=== PATIENT | male | born 1955 | race Caucasian/White ===

== ENCOUNTER 2020-09-27 08:07 | Outpatient (REF) | payer OTHER, SELFPAY ==
[2020-09-27 10:06] LABS: MANUAL DIFF FLAG NO
[2020-09-27 10:20] LABS: Basophils Percent Auto 0.4 % (0-2); Eosinophils Absolute Auto 0.2 X10*3/uL (0.0-0.4); Eosinophils Percent Auto 4.3 % (0-4); Hematocrit 46.2 % (42-52); Hemoglobin 15.7 g/dl (14.0-18.0); Imm Gran Abs Auto 0.01 X10*3/uL (0.00-0.03); Imm Gran Pct Auto 0.2 % (0.0-0.4); Lymphocytes Absolute Auto 1.3 X10*3/uL (1.2-4.9); Lymphocytes Percent Auto 25.1 % (20-40); Mean Corpuscular Hemoglobin 33.5 pg (27.0-33.0); Mean Corpuscular Volume 98.7 fL (80-98); Monocytes Absolute Auto 0.6 X10*3/uL (0.1-1.2); Monocytes Percent Auto 11.5 % (2-11); Neutrophils Percent Auto 58.5 % (45-73); Platelet Count 228 X10*3/uL (160-400); Red Blood Count 4.68 X10*6/uL (4.60-5.80); Red Cell Distribution Width 11.9 % (11.0-16.0); White Blood Count 5.1 X10*3/uL (4.8-10.8)
[2020-09-27 10:56] LABS: Cholesterol 193 mg/dL; HDL Cholesterol 49 mg/dL; LDL Cholesterol Calculated 122 mg/dl; Triglycerides 113 mg/dL
[2020-09-27 11:18] LABS: Prostate Specific Antigen 0.75 ng/mL (<0.05-4.0)
== END 2020-09-27 08:08 | disposition home or self-care (01) ==
LOC: HO.10HDL 08:07
PROVIDERS: Absent Provider Internal Medicine Medical Oncology; Visit Provider Internal Medicine Medical Oncology
DX: E66.3 Overweight (principal)
CPT/HCPCS: 36415; 80061; 84153; 85025

== ENCOUNTER 2021-10-03 07:35 | Outpatient (REF) | payer OTHER, SELFPAY ==
[2021-10-03 10:14] LABS: MANUAL DIFF FLAG NO
[2021-10-03 10:19] LABS: Basophils Percent Auto 0.6 % (0-2); Eosinophils Absolute Auto 0.3 X10*3/uL (0.0-0.4); Eosinophils Percent Auto 4.8 % (0-4); Hematocrit 46.9 % (42.0-52.0); Hemoglobin 15.9 g/dl (14.0-18.0); Imm Gran Abs Auto 0.02 X10*3/uL (0.00-0.03); Imm Gran Pct Auto 0.4 % (0.0-0.4); Lymphocytes Absolute Auto 1.3 X10*3/uL (1.2-4.9); Lymphocytes Percent Auto 24.9 % (20-40); Mean Corpuscular HGB Conc 33.9 g/dl (31.0-36.0); Mean Corpuscular Hemoglobin 33.3 pg (27.0-33.0); Mean Corpuscular Volume 98.3 fL (80.0-98.0); Monocytes Absolute Auto 0.7 X10*3/uL (0.1-1.2); Monocytes Percent Auto 12.4 % (2-11); Neutrophils Absolute Auto 3.1 x10*3/uL (2.0-8.3); Neutrophils Percent Auto 56.9 % (45-73); Platelet Count 252 X10*3/uL (160-400); Red Blood Count 4.77 X10*6/uL (4.60-5.80); Red Cell Distribution Width 11.7 % (11.0-16.0); White Blood Count 5.4 X10*3/uL (4.8-10.8)
[2021-10-03 10:32] LABS: Alanine Aminotransferase 35 U/L (0-40); Albumin Level 4.3 g/dL (3.5-5.0); Alkaline Phosphatase 67 U/L (39-117); Anion Gap 13 (12-20); Aspartate Amino Transferase 29 U/L (5-37); Bilirubin Total 0.6 mg/dL (0.0-1.0); Blood Urea Nitrogen 9 mg/dL (9-16); Calcium 9.5 mg/dL (8.4-10.2); Carbon Dioxide 27 mmol/L (22-29); Chloride 106 mmol/L (96-108); Cholesterol 191 mg/dL; Estimated Glomerular Filt Rate > 60; Glucose Fasting 88 mg/dL (60-99); HDL Cholesterol 46 mg/dL; LDL Cholesterol Calculated 108 mg/dl; Potassium 4.3 mmol/L (3.3-5.1); Sodium 142 mmol/L (135-145); Total Protein 7.1 g/dL (6.5-8.0); Triglycerides 188 mg/dL
[2021-10-03 10:52] LABS: Prostate Specific Antigen 1.01 ng/mL (<0.05-4.0)
== END 2021-10-03 07:36 | disposition home or self-care (01) ==
LOC: HO.10HDL 07:35
PROVIDERS: Visit Provider Internal Medicine Medical Oncology
DX: Z00.00 Encounter for general adult medical examination without abnormal findings (principal); Z12.5 Encounter for screening for malignant neoplasm of prostate; E66.3 Overweight
CPT/HCPCS: 36415; 80053; 80061; 84153; 85025

== ENCOUNTER 2022-10-05 07:30 | Outpatient (REF) | payer OTHER, SELFPAY ==
[2022-10-05 10:45] LABS: MANUAL DIFF FLAG NO
[2022-10-05 10:53] LABS: Basophils Percent Auto 0.8 % (0-2); Eosinophils Absolute Auto 0.3 X10*3/uL (0.0-0.4); Eosinophils Percent Auto 5.7 % (0-4); Hematocrit 47.5 % (42.0-52.0); Imm Gran Abs Auto 0.01 X10*3/uL (0.00-0.03); Imm Gran Pct Auto 0.2 % (0.0-0.4); Lymphocytes Absolute Auto 1.2 X10*3/uL (1.2-4.9); Mean Corpuscular HGB Conc 33.7 g/dl (31.0-36.0); Mean Corpuscular Hemoglobin 33.5 pg (27.0-33.0); Mean Corpuscular Volume 99.4 fL (80.0-98.0); Mean Platelet Volume 10.1 fL (9.4-12.4); Monocytes Absolute Auto 0.6 X10*3/uL (0.1-1.2); Monocytes Percent Auto 11.5 % (2-11); Neutrophils Absolute Auto 3.1 x10*3/uL (2.0-8.3); Neutrophils Percent Auto 58.8 % (45-73); Platelet Count 221 X10*3/uL (160-400); Red Blood Count 4.78 X10*6/uL (4.60-5.80); Red Cell Distribution Width 11.2 % (11.0-16.0); White Blood Count 5.2 X10*3/uL (4.8-10.8)
[2022-10-05 11:59] LABS: Alanine Aminotransferase 28 U/L (0-40); Albumin Level 4.1 g/dL (3.5-5.0); Alkaline Phosphatase 56 U/L (39-117); Anion Gap 10 (12-20); Aspartate Amino Transferase 20 U/L (5-37); Bilirubin Total 0.8 mg/dL (0.0-1.0); Blood Urea Nitrogen 12 mg/dL (9-16); Calcium 9.3 mg/dL (8.4-10.2); Carbon Dioxide 29 mmol/L (22-29); Chloride 106 mmol/L (96-108); Cholesterol 169 mg/dL; Estimated Glomerular Filt Rate > 60; Glucose Fasting 94 mg/dL (60-99); HDL Cholesterol 36 mg/dL; LDL Cholesterol Calculated 113 mg/dl; Potassium 4.8 mmol/L (3.3-5.1); Prostate Specific Antigen 0.75 ng/mL (<0.05-4.0); Sodium 140 mmol/L (135-145); Total Protein 6.6 g/dL (6.5-8.0); Triglycerides 102 mg/dL
== END 2022-10-05 07:31 | disposition home or self-care (01) ==
LOC: HO.10HDL 07:30
PROVIDERS: Visit Provider Internal Medicine Medical Oncology
DX: Z00.00 Encounter for general adult medical examination without abnormal findings (principal); Z12.5 Encounter for screening for malignant neoplasm of prostate; N40.0 Benign prostatic hyperplasia without lower urinary tract symptoms; E66.3 Overweight
CPT/HCPCS: 36415; 80053; 80061; 84153; 85025

== ENCOUNTER 2023-05-07 08:07 | Day surgery (SDC) | payer OTHER, SELFPAY ==
--- NOTE | 2023-05-04 14:14 | HO.ANESPROP2 ---
Documented by User: Mayuri Gale NP 05/04/23 14:14 HPI - Anesthesia Eval Consult details Narrative: 67yo M for Colonoscopy [facility] Past Medical History Medical History (Updated 05/04/23 @ 13:47 by Elsie Vargas RN) Melanoma Surgical History Surgical History (Updated 05/04/23 @ 13:47 by Elsie Vargas RN) H/O colonoscopy History of carpal tunnel release of both wrists History of vasectomy Social History Social History Patient Tobacco Use Status: Never used Tobacco Second Hand Smoke Exposure: No Use of substances other than those prescribed or required for medical reasons: No Are you DNR?: No Advance Directives: No Advance Directives Information Provided: Yes Meds Allergies Allergy/AdvReac Type Severity Reaction Status Date / Time tree and shrub pollen Allergy Unknown Verified 05/04/23 13:45 Home Medications Medication Instructions Recorded Confirmed Last Taken Type No Known Home Meds 05/04/23 05/04/23 Unknown History Exam Exam Date and Time: May 04, 2023 141 Assessment and Plan Assessment Anesthesia Assessment: Chart Reviewed Documented by User: Claribel Carvalho MD 05/07/23 10:24 [facility] Past Medical History Medical History (Updated 05/04/23 @ 13:47 by Elsie Vargas RN) Melanoma Family History Family history of problems with anesthesia: No Surgical History Surgical History (Updated 05/04/23 @ 13:47 by Elsie Vargas RN) H/O colonoscopy History of carpal tunnel release of both wrists History of vasectomy History of Problems with Anesthesia: No Social History Social History Patient Tobacco Use Status: Never used Tobacco Second Hand Smoke Exposure: No Use of substances other than those prescribed or required for medical reasons: No Are you DNR?: No Advance Directives: No Advance Directives Information Provided: Yes Meds Allergies Allergy/AdvReac Type Severity Reaction Status Date / Time tree and shrub pollen Allergy Unknown Verified 05/04/23 13:45 Home Medications Medication Instructions Recorded Confirmed Last Taken Type No Known Home Meds 07/21/23 07/21/23 Unknown History Exam Airway Mallampati Class: I TM Dist: >3cm Neck ROM: Full Loose/Missing/Broken Teeth: No Heart: rr Lungs: cta Assessment and Plan Assessment Anesthesia Assessment: Anesthesia Plan Discussed Final Anesthetic Review Family History of Problems with Anesthesia: No History of Problems with Anesthesia: No NPO: Yes ASA Class: I Final Preanesthetic Review: No Changes in Pt Med Stat, Meds/Allgs Chart Reviewed, Consent Obtained/Reviewed and Anes Risks/Benef Reviewed Procedure Risk: Low Anesthetic Plan Anesthetic Plan: MAC: Disposition: Standard PACU
[2023-05-07 09:23] VITALS: BMI 28.7
[2023-05-07 09:30] VITALS: BP 120/64; PULSE 65; RESP 16; TEMP 36.4; O2SAT 96
[2023-05-07] MEDS: Lactated Ringers 1,000 ML 100 ML IVCONT (09:42)
--- NOTE | 2023-05-07 10:52 | P.BOP_ITS ---
Brief Operative Note Date of Service: 05/07/23 Pre-op diagnosis: Screening Post-op diagnosis: other (Colon polyp) Procedure: Colonoscopy to the cecum and TI with bx/removal of polyp Surgeon: Karsten Larios Anesthesia: MAC Was an Admitting Coordinator used for this Procedure?: No Estimated blood loss (mL): 2.0 Pathology: other (A. Transverse colon polyp) Condition: stable Disposition: PACU
[2023-05-07 10:54] VITALS: BP 104/51; PULSE 62; RESP 16; TEMP 36.1; O2SAT 95
--- NOTE | 2023-05-07 11:02 | OP_ITS ---
DATE OF SERVICE: 05/07/2023 SURGEON: Karsten Larios MD INDICATIONS: The patient presents for evaluation of personal history of tubular adenoma of the colon, family history of colon cancer, and need for colorectal cancer screening. Full consent obtained from him for this, including risks of bleeding and perforation. PREOPERATIVE DIAGNOSIS: POSTOPERATIVE DIAGNOSIS: PROCEDURE PERFORMED: Colonoscopy to cecum and terminal ileum with biopsy and removal of polyp. ESTIMATED BLOOD LOSS: COMPLICATIONS: ANESTHESIA: Monitored anesthesia care. ASSISTANTS: SPECIMENS: PREOPERATIVE DIAGNOSES: Personal history of tubular adenoma of the colon, family history of colon cancer, and colorectal cancer screening. POSTOPERATIVE DIAGNOSES: Personal history of tubular adenoma of the colon, family history of colon cancer, and colorectal cancer screening. Small colon polyp, diverticulosis and internal hemorrhoids. DESCRIPTION OF PROCEDURE: The patient was placed in the left lateral decubitus position. The digital rectal exam revealed no abnormalities. The Olympus video pediatric colonoscope was entered into the rectum and advanced easily to the cecum. Once in the cecum, I did identify normal-appearing cecal pouch with appendiceal orifice and a normal-appearing ileocecal valve. The terminal ileum was cannulated and appeared normal. Scope was withdrawn back in the colon. The entire cecum and ileocecal valve appeared normal. The scope was slowly withdrawn assessing all mucosal surfaces carefully. Preparation was excellent. In the transverse colon was a flat, approximately 4 mm polyp, which was biopsied and completely removed with cold biopsy forceps. I did not visualize any other polyps, colitis, or angiodysplasia. There was a mild amount of sigmoid diverticulosis. In the rectum, scope was retroflexed visualizing internal hemorrhoids, but no other pathology. The rectal mucosa appeared normal. Scope was straightened and withdrawn from the patient. He tolerated the procedure well and was returned to recovery area in stable condition. IMPRESSION: 1. Small colon polyp. 2. Diverticulosis. 3. Internal hemorrhoids. PLAN: The results of biopsy will be checked. I would recommend a repeat colonoscopy in 5 years for further screening and surveillance. He will otherwise see me on a p.r.n. basis. MD NUZHAT Quinones/ASHLEY / [id number]
[2023-05-07 11:09] VITALS: BP 115/61; PULSE 55; RESP 16; TEMP 36.1; O2SAT 98
== END 2023-05-07 12:08 | disposition home or self-care (01) ==
PROVIDERS: PCP Internal Medicine Medical Oncology; Visit Provider Internal Medicine
PROC: 0DJD8ZZ Inspection of Lower Intestinal Tract, Via Natural or Artificial Opening Endoscopic (ICD-10-PCS; CPT 45378; principal; 2023-05-07 09:30)
DX: Z12.11 Encounter for screening for malignant neoplasm of colon (principal); D12.3 Benign neoplasm of transverse colon; K57.30 Diverticulosis of large intestine without perforation or abscess without bleeding; K64.8 Other hemorrhoids; Z86.010 Personal history of colon polyps; Z80.0 Family history of malignant neoplasm of digestive organs; Z79.899 Other long term (current) drug therapy
CPT/HCPCS: 45380; 88305

== ENCOUNTER 2023-09-24 15:26 | Outpatient (REF) | payer MEDICARE, SELFPAY ==
--- NOTE | ~2023-09-24 | XR_ITS ---
Examination: Bilateral hand. Clinical indications: Bilateral hand pain. TECHNIQUE: 3 views each hand. FINDINGS: RIGHT HAND: Visualized interphalangeal, MCP and carpometacarpal joint spaces are maintained normal. The intercarpal joint spaces are normal as well. No fracture, dislocation or bony erosive changes seen. There is mild soft tissue swelling PIP joints second third and fourth digits.. LEFT HAND: Visualized interphalangeal, MCP and carpometacarpal joint spaces are normal. The intercarpal joint spaces are maintained normal as well. No bony erosive changes or enthesophytes are seen. There is mild soft tissue swelling PIP joints second third and fourth digits. XR/XR hand LT min 3V IMPRESSION: Mild soft tissue swelling PIP joints second, third and fourth joints. No bony erosive changes, loose bodies are enthesophyte seen in either hands. No visible acute fracture or dislocation either hand.
--- NOTE | ~2023-09-24 | XR_ITS ---
Examination: Bilateral hand. Clinical indications: Bilateral hand pain. TECHNIQUE: 3 views each hand. FINDINGS: RIGHT HAND: Visualized interphalangeal, MCP and carpometacarpal joint spaces are maintained normal. The intercarpal joint spaces are normal as well. No fracture, dislocation or bony erosive changes seen. There is mild soft tissue swelling PIP joints second third and fourth digits.. LEFT HAND: Visualized interphalangeal, MCP and carpometacarpal joint spaces are normal. The intercarpal joint spaces are maintained normal as well. No bony erosive changes or enthesophytes are seen. There is mild soft tissue swelling PIP joints second third and fourth digits. XR/XR hand RT min 3V IMPRESSION: Mild soft tissue swelling PIP joints second, third and fourth joints. No bony erosive changes, loose bodies are enthesophyte seen in either hands. No visible acute fracture or dislocation either hand.
== END 2023-09-24 15:27 | disposition home or self-care (01) ==
LOC: HO.XRAY 15:26
PROVIDERS: PCP Internal Medicine Medical Oncology; Visit Provider Internal Medicine Medical Oncology
DX: M79.641 Pain in right hand (principal); M79.642 Pain in left hand
CPT/HCPCS: 73130

== ENCOUNTER 2023-10-10 08:52 | Outpatient (REF) | payer MEDICARE, SELFPAY ==
[2023-10-10 10:22] LABS: MANUAL DIFF FLAG NO
[2023-10-10 10:26] LABS: Basophils Percent Auto 0.8 % (0-2); Eosinophils Absolute Auto 0.4 X10*3/uL (0.0-0.4); Eosinophils Percent Auto 7.2 % (0-4); Hematocrit 44.4 % (42.0-52.0); Imm Gran Abs Auto 0.01 X10*3/uL (0.00-0.03); Imm Gran Pct Auto 0.2 % (0.0-0.4); Lymphocytes Absolute Auto 1.5 X10*3/uL (1.2-4.9); Lymphocytes Percent Auto 29.7 % (20-40); Mean Corpuscular HGB Conc 33.8 g/dl (31.0-36.0); Mean Corpuscular Volume 94.7 fL (80.0-98.0); Mean Platelet Volume 9.7 fL (9.4-12.4); Monocytes Absolute Auto 0.5 X10*3/uL (0.1-1.2); Monocytes Percent Auto 10.2 % (2-11); Neutrophils Absolute Auto 2.6 x10*3/uL (2.0-8.3); Neutrophils Percent Auto 51.9 % (45-73); Platelet Count 205 X10*3/uL (160-400); Red Blood Count 4.69 X10*6/uL (4.60-5.80); Red Cell Distribution Width 12.2 % (11.0-16.0)
[2023-10-10 10:59] LABS: Alanine Aminotransferase 17 U/L (0-40); Albumin Level 3.8 g/dL (3.5-5.0); Alkaline Phosphatase 57 U/L (39-117); Anion Gap 8 (12-20); Aspartate Amino Transferase 17 U/L (5-37); Bilirubin Total 0.7 mg/dL (0.0-1.0); Blood Urea Nitrogen 14 mg/dL (9-16); Calcium 9.2 mg/dL (8.4-10.2); Carbon Dioxide 27 mmol/L (22-29); Chloride 107 mmol/L (96-108); Cholesterol 166 mg/dL (<200); Estimated Glomerular Filt Rate > 60; Glucose Fasting 87 mg/dL (60-99); HDL Cholesterol 38 mg/dL (>40); LDL Cholesterol Calculated 107 mg/dL (<100); Potassium 4.2 mmol/L (3.3-5.1); Sodium 138 mmol/L (135-145); Total Protein 6.5 g/dL (6.5-8.0); Triglycerides 105 mg/dL (<150)
[2023-10-10 11:15] LABS: Prostate Specific Antigen 0.74 ng/mL (<0.05-4.0)
== END 2023-10-10 08:53 | disposition home or self-care (01) ==
LOC: HO.10HDL 08:52
PROVIDERS: Visit Provider Internal Medicine Medical Oncology
DX: Z00.00 Encounter for general adult medical examination without abnormal findings (principal); E66.3 Overweight; N40.0 Benign prostatic hyperplasia without lower urinary tract symptoms; Z12.5 Encounter for screening for malignant neoplasm of prostate
CPT/HCPCS: 36415; 80053; 80061; 84153; 85025

== ENCOUNTER 2024-12-01 08:58 | Outpatient (REF) | payer MEDICARE, SELFPAY ==
--- OUTSIDE RECORDS SUMMARY | 2024-12-01 09:03 | XMS_ITS | Patient Health Record ---
Author Organization [facility] Address [address] [place] [address] Care Team Providers Care Sand Sifter Name Role Phone Karsten Solis MD Primary Care Provider UnavailKarsten Cantu Unavailable [phone] ALLERGIES Allergen (clinical drug ingredient) Drug/Non Drug Allergy documented on EMR Reaction Allergy Type Onset Date Status Pollen TREE POLLEN (uncoded) Unknown Allergy Active REASON FOR REFERRAL No Information SOCIAL HISTORY Sex Assigned At : Social History Observation Description Sex Assigned At Unknown Alcohol Screen Question Answer Notes Did you have a drink containing alcohol in the p ast year? No Points 0 Interpretation Negative PROBLEMS Problem Type ICD Code Onset Dates Problem Status W/U Status Risk SNOMED Code Notes Problem Family history of colon cancer (Z80.0) Active confirmed 262979473 Problem Encounter for screening for malignant neoplasm of colon (Z12.11) Active confirmed 432849949 Problem Encounter for screening for malignant neoplasm of rectum (Z12.12) Active confirmed Screening fo r malignant neoplasm of rectum (496949408) Problem Preprocedural examination (Z01.818) Active confirmed 322646027 Problem History of adenomatous polyp of colon (Z86.010) Active confirmed 729504229 Problem Diverticulosis of colon (K57.30) Active confirmed Diverticulosi s of colon (473884655) PLAN OF TREATMENT Pending Test Test Name Order Date Pathology 05/07/2023 Future Test Test Name Order Date COLONOSCOPY 01/03/2017 COLONOSCOPY 02/23/2023 Insurance Providers Payer Name Payer Address Payer Phone Subscriber Number Group Number Insured Name Patient Relationship to Insured Coverage Start Date Coverage End Date [facility] [address] [address] [place] [address] [phone] [id number] ELIAS NETTLES Self - patient is the insured MEDICAL (GENERAL) HISTORY Medical History History ICD Code Melanoma-neck--as below Denies GA,DM,CVA,Lung disease,renal dise ase Colonoscopies in 2010, 2003, and in the that have all been negative for polyps--- the 2010 colonoscopy was done by Dr. Grant and the 2003 colonoscopy was done by Dr. Zapien--- the previous colonoscopy was done in [place]. Screening colonoscopy in Mar with removal of several small tubular adenomas Surgical History Surgery Date(Month/Year) Melanoma--radical neck surgery in [place] 199 2 Bilateral carpal tunnel--Dr. Wiseman Vasectomy
--- OUTSIDE RECORDS SUMMARY | 2024-12-01 09:04 | XMS_ITS | Patient Health Record ---
Author Organization Karsten Solis III, MD Address [address] [place] [address] Care Team Providers Care Head Piece Assembler Name Role Phone Karsten Solis Primary Care Provider [phone] Allergies Allergen (clinical drug ingredient) Drug/Non Drug Allergy documented on EMR Reaction Allergy Type Onset Date Status Mold Unknown Allergy Active Dog dander Dog Dander Unknown Allergy Active Cat dander Cat Dander Unknown Allergy Active Results Component Value Reference Range Notes URINE DIP STICK Reviewed date:12/06/2023 11:32:54 AM Interpretation: Performing Lab: Notes/Report: SG 1.005 1.005 - 1.025 pH Negative 5.0 - 9.0 KAELA Negative Negative - NIT Negative Negative - PRO 15 Negative - Trace GLU Negative Negative - KET Negative Negative - UBG 0.2 0.1 - 1.8 ELYSIA Negative 0.2 - 1.3 BLD Positive Negative - Reason For Referral Reason Evaluate and Treat W orsening Neoplasm tip of nose Diagnosis 1 Neoplasm of nose (D4 9.89) Referral Organization Karsten Soils III, MD Referring Provider First Name Karsten Referring Provider Last Name Solis Referring Provider Speciality Internal M edicine Referred Provider [facility] Referred Provider Specialty Dermatology General Notes Roxie Damon 2023 03:07:30 PM EST > Referral faxed with cover sheet, progress note and valerie Referral Priority Routine Referral Appointment Date 01/10/2024 Reason worsening skin lesio n on tip of nose evaluate and treat Diagnosis 1 Basal cell carcinoma of nose (C44.311) Referral Organization Karsten Solis III, MD Referring Provider First Name Karsten Referring Provider Last Name Irma Referring Provider Speciality Internal M edicine Referred Provider BREANNA OJEDA Referred Provider Specialty Dermatology General Notes Noris Griffin [facility] 06/09/2024 10:37:58 AM EDT > ref/progress note faxed to Dr Ojeda office , EliasNoris [facility] 06/25/2024 09:55:16 AM EDT > Called Dr Ojeda office made [address] [place] [address] appt with Maria D Beasley NP information called and alona to patient , Noris Griffin [facility] 06/30/2024 10:52:58 AM EDT > Per patient request this appt was cancelled pt will continue his care with [facility] Referral Priority Routine Referral Appointment Date 10/27/2024 Immunizations Vaccine Route Administration Date Status Comme nts Influenza Unknown 08/15/2015 Administered Tetanus and Diphtheria Toxoids Adsorbed IM Intramuscular 09/15/2015 Administered COVID Moderna Bivalent Unknown 02/18/2023 Administered SHINGRIX Unknown 04/21/2022 Administered Influenza High Dose Quadrivalent Unknown 07/09/2022 Administered COVID PFIZER Unknown 01/25/2021 Administered COVID PFIZER Unknown 02/16/2021 Administered COVID Pfizer Bivalent Unknown 07/09/2022 Administered Influenza, quad Unknown 09/03/2021 Administered COVID 19 Moderna Unknown 01/14/2022 Administered COVID PFIZER Unknown 08/20/2021 Administered Influenza High Dose Quadrivalent Unknown 07/25/2023 Administered SHINGRIX Unknown 01/14/2022 Administered PCV20 Unknown 01/14/2022 Administered RSV Adjuvant Unknown 07/22/2024 Administered Fluzone High-Dose (HD-IIV3) Unknown 07/22/2024 Administered COVID-19 Moderna SPIKEVAX Unknown 07/25/2023 Administer ed COVID-19 Comirnatgee Pfizer-BioNTech Unknown 07/09/2024 Administered Social History Tobacco Use: Social History Observation Description Date Details (start date - stop date) Never Smoker NA - NA Sex Assigned At : Social History Observation Description Sex Assigned At Male Tobacco Use/Smoking Question Answer Notes Patient is a nonsmoker Additional Findings: Tobacco Non-User Aggressive non-smoker Alcohol Screen Question Answer Notes Did you have a drink containing alcohol in the p ast year? No Points 0 Interpretation Negative Problems Problem Type SNOMED Code ICD Code Onset Dates Problem Status W/U Status Risk Notes Problem 595653064 Overweight (E66.3) Active confirmed His body mass index is 27. I recommended he stabilize his weight over the winter holidays and then lose weight at a rate of one half of a pound per weeks for a diet restricted in fat calories and sodium combined with regular exercise. 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 He will continue on ibuprofen. Problem Benign prostatic hyperplasia (851150657) BPH (benign prostatic hyperplasia) (N40.0) Active confirmed His prostatism is stable at 179 and he is restricting fluid intake prior to bed. No change in his regimen was needed. Problem 82754370 Carpal tunnel syndrome (G56.00) Active confirmed He successfully underwent surgery in the spring of 2015 and is pleased with the results. He is had no new symptoms since that time. Problem 21553671 Melanoma of skin (C43.9) Active confirmed He sees his in flight refueling operator annually with negative results. There is no sign of recurrent disease or new primary. No new cases of melanoma or other malignancies have occurred and his family since his last visit. Problem 773857976 Family history of colon cancer (Z80.0) Active confirmed His last colonoscopy was in 2017. He will have a colonoscopy every 5 years. Problem 035312637 Basal cell carcinoma of nose (C44.311) Active confirmed Vital Signs Heart Rate 58 /min 06/05/2024 Temperature 97.3 degrees Fahrenheit 06/05/2024 Blood pressure diastolic 90 mm Hg 06/05/2024 Height 72 in 06/05/2024 Blood pressure systolic 155 mm Hg 06/05/2024 Weight 205 lbs 06/05/2024 BMI 27.8 kg/m2 06/05/2024 Encounters Encounter Location Date Provider Diagnosis Karsten Solis III, MD [address] [place] [address] [place] [phone] 12/06/2023 Karsten Solis Melanoma of skin C43.9 ; Carpal tunnel syndrome G56.00 ; Overweight E66.3 ; BPH (benign prostatic hyperplasia) N40.0 ; Family history of colon cancer Z80.0 and Primary osteoarthritis, left hand M19.042 Karsten Solis III, MD [address] [place] [address] [place] [address] 06/05/2024 Karsten Solis Melanoma of skin C43.9 ; Carpal tunnel syndrome G56.00 ; Overweight E66.3 and BPH (benign prostatic hyperplasia) N40.0 Karsten Solis III, MD [address] [place] [address] [place] [phone] 06/27/2024 Karsten Solis III, MD [address] [place] [address] [place] [phone] 11/05/2024 Karsten Solis III, MD [address] [place] [address] [place] [phone] 11/05/2024 Karsten Solis Overweight E66.3 and BPH (benign prostatic hyperplasia) N40.0 Assessments Encounter Date Diagnosis (ICD Code) Assessment Notes Treatment Notes Treatment Clinical Notes 12/06/2023 Carpal tunnel syndrome (ICD-10 - G56.00) He successfully underwent surgery in the spring and is pleased with the results. He is had no new symptoms since that time. 12/06/2023 Melanoma of skin (ICD-10 - C43.9) He sees his in flight refueling operator annually with negative results. There is no sign of recurrent disease or new primary. No new cases of melanoma or other malignancies have occurred and his family since his last visit. 06/05/2024 Carpal tunnel syndrome (ICD-10 - G56.00) He successfully underwent surgery in the spring and is pleased with the results. He is had no new symptoms since that time. 06/05/2024 Melanoma of skin (ICD-10 - C43.9) He sees his in flight refueling operator annually with negative results. There is no sign of recurrent disease or new primary. No new cases of melanoma or other malignancies have occurred and his family since his last visit. 11/05/2024 Overweight (ICD-10 - E66.3) 12/06/2023 Overweight (ICD-10 - E66.3) His body mass index is 27. I recommended he stabilize his weight over the winter holidays and then lose weight at a rate of one half of a pound per weeks for a diet restricted in fat calories and sodium combined with regular exercise. 06/05/2024 Overweight (ICD-10 - E66.3) His body mass index is 27. I recommended he stabilize his weight over the winter holidays and then lose weight at a rate of one half of a pound per weeks for a diet restricted in fat calories and sodium combined with regular exercise. 11/05/2024 BPH (benign prostatic hyperplasia) (ICD-10 - N40.0) 12/06/2023 BPH (benign prostatic hyperplasia) (ICD-10 - N40.0) His prostatism is stable at 179 and he is restricting fluid intake prior to bed. No change in his regimen was needed. 06/05/2024 BPH (benign prostatic hyperplasia) (ICD-10 - N40.0) His prostatism is stable at 179 and he is restricting fluid intake prior to bed. No change in his regimen was needed. 12/06/2023 Family history of colon cancer (ICD-10 - Z80.0) His last colonoscopy was in 2017. He will have a colonoscopy every 5 years. 12/06/2023 Primary osteoarthritis, left hand (ICD-10 - M19.042) The x-rays show mild arthritis. He will continue on ibuprofen. Plan Of Treatment Pending Test Test Name Order Date GUAIAC, SINGLE SPECIMEN 10/05/2020 PROFILE, FASTING (COMPREHENSIVE METABOLI C) 10/05/2020 PROFILE, FASTING (COMPREHENSIVE METABOLI C) 09/25/2018 PROFILE, FASTING (COMPREHENSIVE METABOLI C) 09/19/2017 PROFILE, FASTING (COMPREHENSIVE METABOLI C) 10/17/2022 PROFILE, FASTING (COMPREHENSIVE METABOLI C) 10/11/2021 LIPID PANEL 10/05/2020 LIPID PANEL 09/25/2018 LIPID PANEL 09/19/2017 PSA, TOTAL 10/11/2021 PSA, TOTAL 10/05/2020 PSA, TOTAL 09/25/2018 PSA, TOTAL 10/17/2022 PSA, TOTAL 09/19/2017 CBC w DIFF 10/11/2021 CBC w DIFF 10/05/2020 CBC w DIFF 09/25/2018 CBC w DIFF 10/17/2022 CBC w DIFF 09/19/2017 Lipid Panel 10/17/2022 Lipid Panel 10/11/2021 Next Appt Details Provider Name:Karsten Solis, 12/10/2024 11:00:00 AM, [address] [place] [address] [address], [address], [place], [address], Insurance Providers Payer Name Payer Address Payer Phone Subscriber Number Group Number Insured Name Patient Relationship to Insured Coverage Start Date Coverage End Date [employer]age [address] [address] [place] [address] [id number] Eris Vieira Self - patient is the insured MEDICARE NGS [address] [place] [id number] Eris Vieira Self - patient is the insured Medical (General) History Medical History History ICD Code 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 Grant 2010 colonscopy -2003 - 12/2004
--- OUTSIDE RECORDS SUMMARY | 2024-12-01 09:04 | XMS_ITS ---
Author Organization Karsten Solis III, MD Address [address] [place] [address] Care Team Providers Care Clasp Machine Operator Name Role Phone Karsten Solis Primary Care Provider REASON FOR VISIT New Lab Request Social History Sex Assigned At : Social History Observation Description Sex Assigned At Male Encounters Encounter Location Date Provider Diagnosis Karsten Solis III, MD [address] [place] [address] [place] [address] 11/05/2024 Karsten Solis Overweight E66.3 and BPH (benign prostatic hyperplasia) N40.0 Assessments Encounter Date Diagnosis (ICD Code) Assessment Notes Treatment Notes Treatment Clinical Notes 11/05/2024 Overweight (ICD-10 - E66.3) 11/05/2024 BPH (benign prostatic hyperplasia) (ICD-10 - N40.0) Plan Of Treatment Pending Test Test Name Order Date PROFILE, FASTING (COMPREHENSIVE METABOLI C) 11/05/2024 PSA, TOTAL 11/05/2024 CBC WITH AUTO DIFF 11/05/2024 Lipid Panel 11/05/2024 Next Appt Details Provider Name:Karsten Solis, 12/10/2024 11:00:00 AM, [address] [place] [address] [address] [place], [place], [address], Progress Notes * Eris VIEIRA DDOB:[birth year] (68 yo M)Acc No.[id number]:11/05/2024 Patient:?Eris VIEIRA D :1955???Age:68 Y???Sex:Male Address:[address] [place] [address], [place] [address] Subjective: * Chief Complaints: * ???New Lab Request * Medical History:? * Surgical History:? * Hospitalization/Major Diagno stic Procedure:? * Medications:? Objective: * Vitals:? * Physical Examination:? Assessment: * Assessment: 1.?Overweight - E66.3???2.?B PH (benign prostatic hyperplasia) - N40.0??? Plan: * Treatment: 2.?BPH (benign prostatic hyp erplasia)?LAB: PROFILE, FASTING (COMPREHENSIVE METABOLIC) ?LAB: PSA, TOTAL ?LAB: CBC WITH AUTO DIFF ?LAB: Lipid Panel * Procedure Codes:? * true * Date:? Generated for Shirley arcos/Jhoana/eTransmitting on:?12/01/2024 09:03 AM EST
--- OUTSIDE RECORDS SUMMARY | 2024-12-01 09:04 | XMS_ITS ---
Author Organization Karsten Solis III, MD Address [address] [place] [address] Care Team Providers Care Beam House Inspector Name Role Phone Karsten Solis Primary Care Provider REASON FOR VISIT Update Demographics - Personal Info Social History Sex Assigned At : Social History Observation Description Sex Assigned At Male Encounters Encounter Location Date Provider Diagnosis Karsten Solis III, MD [address] [place] [address] [place] [address] 11/05/2024 Karsten Solis Plan Of Treatment Next Appt Details Provider Name:Karsten Solis, 12/10/2024 11:00:00 AM, [address] [place] [address] [place], [address], Progress Notes * Eris VIEIRA DDOB:[birth year] (68 yo M)Acc No.[id number]:11/05/2024 Patient:?Eris VIEIRA :1955???Age:68 Y???Sex:Male Address:[address] [place] [address], [place] [address] * true * Date:? Generated for Shirley arcos/Jhoana/Nicoitting on:?12/01/2024 09:04 AM EST
--- OUTSIDE RECORDS SUMMARY | 2024-12-01 09:04 | XMS_ITS ---
Author Organization Karsten Solis III, MD Address [address] [place] [address] Care Team Providers Care Paint Technician Name Role Phone Karsten Solis Primary Care Provider REASON FOR VISIT Message Social History Sex Assigned At : Social History Observation Description Sex Assigned At Male Encounters Encounter Location Date Provider Diagnosis Karsten Solis III, MD [address] [place] [address] [place] [address] 06/27/2024 Karsten Solis Plan Of Treatment Next Appt Details Provider Name:Karsten Solis, 12/10/2024 11:00:00 AM, [address] [place] [address] [place], [address], Progress Notes * Eris VIEIRA DDOB:[birth year] (68 yo M)Acc No.[id number]:06/27/2024 Patient:?Eris Vieira :1955???Age:68 Y???Sex:Male Address:[address] [place] [address], [place] [address] * true * Date:? Generated for Shirley arcos/Jhoana/Pritismitting on:?12/01/2024 09:04 AM EST
[2024-12-01 09:09] LABS: MANUAL DIFF FLAG NO
[2024-12-01 09:36] LABS: Basophils Percent Auto 0.5 % (0-2); Eosinophils Absolute Auto 0.5 X10*3/uL (0.0-0.4); Eosinophils Percent Auto 8.7 % (0-4); Hematocrit 44.9 % (42.0-52.0); Hemoglobin 15.4 g/dl (14.0-18.0); Imm Gran Abs Auto 0.02 X10*3/uL (0.00-0.03); Imm Gran Pct Auto 0.4 % (0.0-0.4); Lymphocytes Absolute Auto 1.7 X10*3/uL (1.2-4.9); Lymphocytes Percent Auto 29.6 % (20-40); Mean Corpuscular HGB Conc 34.3 g/dl (31.0-36.0); Mean Corpuscular Hemoglobin 32.4 pg (27.0-33.0); Mean Corpuscular Volume 94.5 fL (80.0-98.0); Mean Platelet Volume 9.7 fL (9.4-12.4); Monocytes Absolute Auto 0.6 X10*3/uL (0.1-1.2); Monocytes Percent Auto 11.2 % (2-11); Neutrophils Absolute Auto 2.8 x10*3/uL (2.0-8.3); Neutrophils Percent Auto 49.6 % (45-73); Platelet Count 207 X10*3/uL (160-400); Red Blood Count 4.75 X10*6/uL (4.60-5.80); Red Cell Distribution Width 12.4 % (11.0-16.0); White Blood Count 5.6 X10*3/uL (4.8-10.8)
[2024-12-01 10:04] LABS: Alanine Aminotransferase 33 U/L (0-40); Albumin Level 4.1 g/dL (3.5-5.0); Alkaline Phosphatase 63 U/L (39-117); Anion Gap 12 (12-20); Aspartate Amino Transferase 32 U/L (5-37); Bilirubin Total 0.5 mg/dL (0.0-1.0); Blood Urea Nitrogen 14 mg/dL (9-16); Calcium 9.2 mg/dL (8.4-10.2); Carbon Dioxide 26 mmol/L (22-29); Chloride 106 mmol/L (96-108); Cholesterol 174 mg/dL (<200); Estimated Glomerular Filt Rate > 60; Glucose Fasting 86 mg/dL (60-99); HDL Cholesterol 41 mg/dL (>40); LDL Cholesterol Calculated 117 mg/dL (<100); Potassium 4.5 mmol/L (3.3-5.1); Sodium 139 mmol/L (135-145); Total Protein 7.3 g/dL (6.5-8.0); Triglycerides 83 mg/dL (<150)
[2024-12-01 10:23] LABS: Prostate Specific Antigen 1.42 ng/mL (<0.05-4.0)
== END 2024-12-01 08:59 | disposition home or self-care (01) ==
LOC: HO.LAB 08:58
PROVIDERS: PCP Internal Medicine Medical Oncology; Visit Provider Internal Medicine Medical Oncology
DX: E66.3 Overweight (principal); N40.0 Benign prostatic hyperplasia without lower urinary tract symptoms; Z12.5 Encounter for screening for malignant neoplasm of prostate
CPT/HCPCS: 36415; 80053; 80061; 84153; 85025

== ENCOUNTER 2024-12-10 10:55 | Outpatient (REF) | payer MEDICARE, SELFPAY ==
--- NOTE | ~2024-12-10 | XR_ITS ---
CLINICAL HISTORY: ACUTE PAIN OF RIGHT SHOULDER 5 view right shoulder Comparison: None Findings: No fractures or dislocations. There are degenerative changes of the AC joint, osteophyte formation and small subchondral geodes. There are surgical clips within the right neck and supraclavicular soft tissues. There are small humeral head and glenoid osteophytes. There is mild subchondral sclerosis greater tuberosity and small subchondral geodes. No erosions. No radiopaque foreign body. IMPRESSION: Glenohumeral and AC joint osteoarthrosis. Degenerative changes of the greater tuberosity which can be associated with rotator cuff pathology. Surgical clips within the right neck and supraclavicular soft tissues. This document has been electronically signed by: Karsten Sow MD on 12/11/2024 09:05:28
--- OUTSIDE RECORDS SUMMARY | 2024-12-10 13:42 | XMS_ITS | Patient Health Record ---
Author Organization Karsten Solis III, MD Address [address] [place] [address] Care Team Providers Care Hand Booked Folder And Stitcher Name Role Phone Karsten Solis Primary Care Provider Allergies Allergen (clinical drug ingredient) Drug/Non Drug Allergy documented on EMR Reaction Allergy Type Onset Date Status Mold Unknown Allergy Active Dog dander Dog Dander Unknown Allergy Active Cat dander Cat Dander Unknown Allergy Active Results Component Value Reference Range Notes URINE DIP STICK Reviewed date:12/10/2024 10:14:34 AM Interpretation: Performing Lab: Notes/Report: SG 1.000 1.005 - 1.025 pH 6.5 5.0 - 9.0 KAELA Negative Negative - NIT Negative Negative - PRO 15 Negative - Trace GLU Negative Negative - KET Negative Negative - UBG 0.2 0.1 - 1.8 ELYSIA Negative 0.2 - 1.3 BLD Negative Negative - Complete Blood Count Auto Di ff Reviewed date:12/10/2024 10:23:01 AM Interpretation: Performing Lab:[facility], [address] [place] [phone] Notes/Report: White Blood Count 5.6 4.8-10.8 X10*3/uL Red Blood Count 4.75 4.60-5.80 X10*6/uL Hemoglobin 15.4 14.0-18.0 g/dl Hematocrit 44.9 42.0-52.0 % Mean Corpuscular Volume 94.5 80.0-98.0 fL Mean Corpuscular Hemoglobin 32.4 27.0-33.0 pg Mean Corpuscular HGB Conc 34.3 31.0-36.0 g/dl Red Cell Distribution Width 12.4 11.0-16.0 % Platelet Count 207 160-400 X10*3/uL Mean Platelet Volume 9.7 9.4-12.4 fL Neutrophils Percent Auto 49.6 45-73 % Imm Gran Pct Auto 0.4 0.0-0.4 % Lymphocytes Percent Auto 29.6 20-40 % Monocytes Percent Auto 11.2 2-11 % Eosinophils Percent Auto 8.7 0-4 % Basophils Percent Auto 0.5 0-2 % NRBC Pct Auto 0.0 0.0-0.2 /100WBC Neutrophils Absolute Auto 2.8 2.0-8.3 x10*3/u L Imm Gran Abs Auto 0.02 0.00-0.03 X10*3/uL Lymphocytes Absolute Auto 1.7 1.2-4.9 X10*3/u L Monocytes Absolute Auto 0.6 0.1-1.2 X10*3/uL Eosinophils Absolute Auto 0.5 0.0-0.4 X10*3/u L Basophils Absolute Auto 0.0 0.0-0.2 X10*3/uL NRBC Abs Auto 0.000 0.0-0.012 X10*3/uL Comprehensive [place]. Panel Fa st Reviewed date:12/10/2024 10:23:01 AM Interpretation: Performing Lab:[facility], [address] [place] [phone] Notes/Report: Sodium 139 135-145 mmol/L Potassium 4.5 3.3-5.1 mmol/L Chloride 106 96-108 mmol/L Carbon Dioxide 26 22-29 mmol/L Anion Gap 12 12-20 Blood Urea Nitrogen 14 9-16 mg/dL Creatinine 0.89 0.5-1.4 mg/dL Estimated Glomerular Filt Rate > 60 Chronic Kidney Disease: Estimated GFR < 60 mL/min/1.73m2 Severe Kidney Disease: Estimated GFR < 15 mL/min/1.73m2 Glucose Fasting 86 60-99 mg/dL Calcium 9.2 8.4-10.2 mg/dL Bilirubin Total 0.5 0.0-1.0 mg/dL Aspartate Amino Transferase 32 5-37 U/L Alanine Aminotransferase 33 0-40 U/L Total Protein 7.3 6.5-8.0 g/dL Albumin Level 4.1 3.5-5.0 g/dL Alkaline Phosphatase 63 39-117 U/L Lipid Panel Reviewed date:12/10/2024 10:23:01 AM Interpretation: Performing Lab:[facility], [address] [place] [phone] Notes/Report: Triglycerides 83 <150 mg/dL Desirable Triglyceride: less than 150 mg/dL Borderline High Triglyceride 150-199 mg/dL High Triglyceride: 200-499 mg/dL Very High Triglyceride: greater than or equal to 5OO mg/dL Cholesterol 174 <200 mg/dL Desirable Cholesterol: less than 200 mg/dL Borderline High Cholesterol: 200-239 mg/dL High Cholesterol: greater than 239 mg/dL LDL Cholesterol Calculated 117 <100 mg/dL Desirable LDL: less than 100 mg/dL Near Optimal/Above Optimal LDL: 110-129 mg/dL Borderline High LDL: 130-159 mg/dL High LDL: 160-189 mg/dL Very High LDL: greater than or equal to 190 mg/dL HDL Cholesterol 41 >40 mg/dL Desirable HDL: greater than 40 mg/dL Note: This HDL assay may give artificially low results in patients with liver disease. Prostate Specific Antigen Reviewed date:12/10/2024 10:23:01 AM Interpretation: Performing Lab:[address] [phone] Notes/Report: Prostate Specific Antigen 1.42 <0.05-4.0 ng/mL PSA methodology: Mayo Alinity i Chemiluminescent Microparticle Immunoassay (CMIA) Reason For Referral Reason worsening skin lesio n on tip of nose evaluate and treat Diagnosis 1 Basal cell carcinoma of nose (C44.311) Referral Organization Karsten Solis III, MD Referring Provider First Name Karsten Referring Provider Last Name Solis Referring Provider Speciality Internal M edicine Referred Provider BREANNA OJEDA Referred Provider Specialty Dermatology General Notes StuartNoris paez A 06/09/2024 10:37:58 AM EDT > ref/progress note faxed to Dr Ojeda office , TaimrGlenis liue RULING MACHINE OPERATOR 06/25/2024 09:55:16 AM EDT > Called Dr Ojeda office made [address] [place] [address] appt with Maria D Beasley NP information called and alona to patient , Noris Griffin RULING MACHINE OPERATOR 06/30/2024 10:52:58 AM EDT > Per patient request this appt was cancelled pt will continue his care with [facility] Referral Priority Routine Referral Appointment Date 10/27/2024 Reason evaluate and treatme nt right shoulder pain Diagnosis 1 Acute pain of right shoulder (M25.511) Referral Organization Karsten Solis III, MD Referring Provider First Name Karsten Referring Provider Last Name Solis Referring Provider Speciality Internal M edicine Referred Provider [place] Referred Provider Specialty Orthopedic S urgery Referral Priority Routine Immunizations Vaccine Route Administration Date Status Comme [...] Moderna SPIKEVAX Unknown 07/25/2023 Administer ed COVID-19 Comirnaty Pfizer-BioNTech Unknown 07/09/2024 Administered Social History Tobacco Use: Social History Observation Description Date Details (start date - stop date) Never Smoker NA - NA Sex Assigned At : Social History Observation Description Sex Assigned At Male Tobacco Control (Standard) Question Answer Notes Tobacco use: Nonsmoker Additional Findings: Tobacco non-user Aggressive nonsmoker AUDIT-C (Standard) Question Answer Notes Did you have a drink containing alcohol in the p ast year? No Points 0 Interpretation Negative Problems Problem Type SNOMED Code ICD Code Onset Dates Problem Status W/U Status Risk Notes Problem 514769270 Overweight (E66.3) Active confirmed His body mass index is 27. I recommended he stabilize his weight over the winter holidays and then lose weight at a rate of one half of a pound per weeks for a diet restricted in fat calories and sodium combined with regular exercise. 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 He will continue on ibuprofen. Problem Benign prostatic hyperplasia (529507585) BPH (benign prostatic hyperplasia) (N40.0) Active confirmed His prostatism is stable at 179 and he is restricting fluid intake prior to bed. No change in his regimen was needed. Problem 10230612 Carpal tunnel syndrome (G56.00) Active confirmed He successfully underwent surgery in the spring of 2015 and is pleased with the results. He is had no new symptoms since that time. Problem 83761264 Melanoma of skin (C43.9) Active confirmed He sees his infection prevention practitioner annually with negative results. There is no sign of recurrent disease or new primary. No new cases of melanoma or other malignancies have occurred and his family since his last visit. Problem 341357201 Family history of colon cancer (Z80.0) Active confirmed His last colonoscopy was in 2017. He will have a colonoscopy every 5 years. Problem 883988237 Basal cell carcinoma of nose (C44.311) Active confirmed Vital Signs Heart Rate 63 /min 12/10/2024 Temperature 97.7 degrees Fahrenheit 12/10/2024 Blood pressure diastolic 79 mm Hg 12/10/2024 Height 72 in 12/10/2024 Blood pressure systolic 153 mm Hg 12/10/2024 Weight 206 lbs 12/10/2024 BMI 27.94 kg/m2 12/10/2024 Encounters Encounter Location Date Provider Diagnosis Karsten Solis III, MD [address] [place] [address] [place] [address] 12/10/2024 Karsten Solis Annual physical exam Z00.00 and Acute pain of right shoulder M25.511 Karsten Solis III, MD [address] [place] [address] [place] [address] 06/05/2024 Karsten Solis Melanoma of skin C43.9 ; Carpal tunnel syndrome G56.00 ; Overweight E66.3 and BPH (benign prostatic hyperplasia) N40.0 Karsten Solis III, MD [address] [place] [address] [place] [address] 06/27/2024 Karsten Solis III, MD [address] [place] [address] [place] [address] 11/05/2024 Karsten Solis III, MD [address] [place] [address] [place] [address] 11/05/2024 Karsten Solis Overweight E66.3 and BPH (benign prostatic hyperplasia) N40.0 Assessments Encounter Date Diagnosis (ICD Code) Assessment Notes Treatment Notes Treatment Clinical Notes 12/10/2024 Annual physical exam (ICD-10 - Z00.00) 06/05/2024 Carpal tunnel syndrome (ICD-10 - G56.00) He successfully underwent surgery in the spring of 2015 and is pleased with the results. He is had no new symptoms since that time. 06/05/2024 Melanoma of skin (ICD-10 - C43.9) He sees his infection prevention practitioner annually with negative results. There is no sign of recurrent disease or new primary. No new cases of melanoma or other malignancies have occurred and his family since his last visit. 11/05/2024 Overweight (ICD-10 - E66.3) 12/10/2024 Acute pain of right shoulder (ICD-10 - M25.511) 06/05/2024 Overweight (ICD-10 - E66.3) His body mass index is 27. I recommended he stabilize his weight over the winter holidays and then lose weight at a rate of one half of a pound per weeks for a diet restricted in fat calories and sodium combined with regular exercise. 11/05/2024 BPH (benign prostatic hyperplasia) (ICD-10 - N40.0) 06/05/2024 BPH (benign prostatic hyperplasia) (ICD-10 - N40.0) His prostatism is stable at 179 and he is restricting fluid intake prior to bed. No change in his regimen was needed. Plan Of Treatment Pending Test Test Name Order Date RAFAELAAC, SINGLE SPECIMEN 10/05/2020 PROFILE, FASTING (COMPREHENSIVE METABOLI C) 10/11/2021 PROFILE, FASTING (COMPREHENSIVE METABOLI C) 10/05/2020 PROFILE, FASTING (COMPREHENSIVE METABOLI C) 09/25/2018 PROFILE, FASTING (COMPREHENSIVE METABOLI C) 09/19/2017 PROFILE, FASTING (COMPREHENSIVE METABOLI C) 10/17/2022 LIPID PANEL 10/05/2020 LIPID PANEL 09/25/2018 LIPID PANEL 09/19/2017 PSA, TOTAL 10/11/2021 PSA, TOTAL 10/05/2020 PSA, TOTAL 09/25/2018 PSA, TOTAL 10/17/2022 PSA, TOTAL 09/19/2017 CBC w DIFF 10/17/2022 CBC w DIFF 09/19/2017 CBC w DIFF 10/11/2021 CBC w DIFF 10/05/2020 CBC w DIFF 09/25/2018 XR SHOULDER RT 2 VIEWS 12/10/2024 Lipid Panel 10/17/2022 Lipid Panel 10/11/2021 Next Appt Details Provider Name:Karsten Solis, 12/23/2024 11:00:00 AM, [address] [place] [address] [address] [place], [place], [address], Provider Name:Karsten Solis, 2025 10:00:00 AM, [address] [place] [address] [place] [place], [place], [phone], Insurance Providers Payer Name Payer Address Payer Phone Subscriber Number Group Number Insured Name Patient Relationship to Insured Coverage Start Date Coverage End Date [employer] Medicare Advantage [address] [address] [place] [address] [id number] Eris Vieira Self - patient is the insured MEDICARE NGS [address] [place] [phone] [id number] Vieira, Christopher Self - patient is the insured Medical (General) History Medical History History ICD Code malignant melanoma on right neck 1991 family history of colon cancer allergies bilateral carpal tunnel syndrome peripheral neuropathy Surgical History Surgery Date(Month/Year) [facility] 08/2024 negative colonoscopy March 2017 right neck dissection and excision of me lanoma bilateral carpal tunnel surgery [address] Grant 2010 colonscopy -2003 - 12/2004
--- OUTSIDE RECORDS SUMMARY | 2024-12-10 13:42 | XMS_ITS ---
Author Organization Karsten Solis III, MD Address [address] [place] [address] Care Team Providers Care Glass Unloading Equipment Tender Name Role Phone Karsten Solis Primary Care Provider [phone] Allergies Allergen (clinical drug ingredient) Drug/Non Drug [...] 0.2 - 1.3 BLD Negative Negative - Reason For Referral Reason evaluate and treatme nt right shoulder pain Diagnosis 1 Acute pain of right shoulder (M25.511) Referral Organization Karsten Solis III, MD Referring Provider First Name Karsten Referring Provider Last Name Irma Referring Provider Speciality Internal M edicine Referred Provider Kumar Kramer, [facility] Referred Provider Specialty Orthopedic S urgery Referral Priority Routine REASON FOR VISIT Annual Exam, Right shoulder pain x 5 months july, carried a dog upstairs Social History Tobacco Use: Social History Observation [...] ast year? No Points 0 Interpretation Negative Vital Signs Temperature 97.7 degrees Fahrenheit 12/10/19 25 Blood pressure systolic 153 mm Hg 12/10/19 25 Blood pressure diastolic 79 mm Hg 025 Heart Rate 63 /min 12/10/2024 Height 72 in 12/10/2024 Weight 206 lbs 12/10/2024 BMI 27.94 kg/m2 12/10/2024 Encounters Encounter Location Date Provider Diagnosis Karsten Solis III, MD [address] [place] [address] [place] [address] 12/10/2024 Karsten Solis Annual physical exam Z00.00 and Acute pain of right shoulder M25.511 Assessments Encounter Date Diagnosis (ICD Code) Assessment Notes Treatment Notes Treatment Clinical Notes 12/10/2024 Annual physical exam (ICD-10 - Z00.00) 12/10/2024 Acute pain of right shoulder (ICD-10 - M25.511) Plan Of Treatment Pending Test Test Name Order Date XR SHOULDER RT 2 VIEWS 12/10/2024 Referrals Referral Date Details 12/10/2024 12/10/2024, evaluate and treatment right shoulder pain, [facility] Kumar Kramer Next Appt Details Follow Up: 2 Weeks, Reason: BP check no tests Provider Name:Karsten Solis, 12/23/2024 11:00:00 AM, [address] [place] [address] [place], [address], Provider Name:Karsten Solis, 2025 10:00:00 AM, [address] [facility] [place], [place], [address], Progress Notes * Eris VIEIRA DDOB:[birth year] (68 yo M)Acc No.[id number]:12/10/2024 Progress Notes Patient:?Eris VIEIRA Provider:?Karsten Solis MD :1955???Age:68 Y???Sex:Male Juliano e:12/10/2024 Address:[address] [place] [address], [place], [place]-[address] Subjective: * Chief Complaints: * ???1. Annual Exam. 2. Right shoulder pain x 5 months july, carried a dog upstairs. * HPI: ???Depression Screening:?PHQ-9?Little interest or pleasure in doing things?Not at all ?Feeling down, depressed, or hopeless?Not at all ?Trouble falling or staying asleep, or sleeping too much?More than half the days ?Feeling tired or having little energy?Several days ?Poor appetite or overeating?Not at all ?Feeling bad about yourself or that you are a failure, or have let yourself or your family down?Not at all ?Trouble concentrating on things, such as reading the newspaper or watching television?Not at all ?Moving or speaking so slowly that other people could have noticed; or the opposite, being so fidgety or restless that you have been moving around a lot more than usual?Not at all ?Thoughts that you would be better off or of hurting yourself in some way?Not at all ?Total Score?3 ?Interpretation?Minimal Depression ???COVID-19 Screening:?Questions?Have you had any new onset fever, chills, cough, congestion, sore throat, shortness of breath, muscle aches??No ???Fall Risk Screening:?Fall History?Have you had any falls with injury in the past year??No ?Have you had two or more falls in the past year??No ?Fall Risk Assessment:?SDOH Questions:?SDOH Questions?In the past year have you been worried about losing your housing??No ?In the past year have you or any family members you live with been unable to get any of the following when it was really needed? Check all that apply:?None * ROS:?General/Constitutional:?pain?only normal aches and pains.?Chills?denies.?Fatigue?admits.?Fever?denies.?ENT:?Decreased hearing?denies.?Respiratory:?Cough?denies.?Cardiovascular:?Chest pain with exertion?denies.?Dyspnea on exertion?denies.?Shortness of breath?denies.?Gastrointestinal:?Constipation?denies.?Decreased appetite?denies.?Diarrhea?denies.?Heartburn?denies.?Nausea?denies.?Rectal bleeding?denies.?Vomiting?denies.?Hematology:?bruising?denies.?petechiae?denies.?Swollen glands?none have been noted.?Genitourinary:?Frequent urination?denies.?Musculoskeletal:?Muscle aches?denies.?Painful joints?denies.?Sciatica?denies.?Weakness?denies.?Skin:?Itching?denies.?Rash?denies.?Skin lesion(s)?denies.?Neurologic:?Difficulty speaking?denies.?Dizziness?denies.?Headache?denies.?Low back pain?denies.?Psychiatric:?Depressed mood?denies.? 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 * Surgical History:?colonscopy -2003 - 12/2004, colonoscopy [facility] Dr. Grant 2010, bilateral carpal tunnel surgery 2015, right neck dissection and excision of melanoma , negative colonoscopy March 2017, [facility] 08/2024. * Hospitalization/Major Diagno stic Procedure:?Denies Past Hospitalization. * Family History:?Father: dece ased 52 yrs, colon cancer.?Mother: alive 91 yrs.?1 brother(s) , 1 sister(s) - healthy. 1 son(s) , 1 daughter(s) - healthy. .? fr colorectal cancer, sister well, mother well. * Social History:?Tobacco Use:?Tobacco Control (Standard)?Tobacco use:?Nonsmoker ?Additional Findings: Tobacco non-user?Aggressive nonsmoker ???Drugs/Alcohol:?Drugs?Have you used drugs other than those for medical reasons in the past 12 months??No ???Drug/Alcohol:?AUDIT-C (Standard)?Did you have a drink containing alcohol in the past year??No ?Points?0 ?Interpretation?Negative * Medications:?None * Allergies:?Mold, Cat Dander, Dog Dander. Objective: * Vitals:?Ht: 72, Wt:206, BMI: 27.94, BP:153/79, HR:63, Temp:97.7, Wt-k.44. * ???Past Orders: Lab:URINE DIP STICK * Collection Date 12/10/2024 12/06/2023 10/17/2022 Order Date 12/10/2024 12/06/2023 10/17/2022 SG 1.000 (Ref Range: 1.005 - 1.025) 1.005 (Ref Range: 1.005 - 1.025) 1.010 pH 6.5 (Ref Range: 5.0 - 9.0) Negative (Ref Range: 5.0 - 9.0) 6 KAELA Negative (Ref Range: Negative -) Negative (Ref Range: Negative -) neg NIT Negative (Ref Range: Negative -) Negative (Ref Range: Negative -) neg PRO 15 (Ref Range: Negative - Trace) 15 (Ref Range: Negative - Trace) trace GLU Negative (Ref Range: Negative -) Negative (Ref Range: Negative -) normal KET Negative (Ref Range: Negative -) Negative (Ref Range: Negative -) neg UBG 0.2 (Ref Range: 0.1 - 1.8) 0.2 (Ref Range: 0.1 - 1.8) neg ELYSIA Negative (Ref Range: 0.2 - 1.3) Negative (Ref Range: 0.2 - 1.3) neg BLD Negative (Ref Range: Negative -) Positive (Ref Range: Negative -) neg Menstrating NR NR n/a * Lab:[facility] [place] * Collection Date 12/01/2024 10/10/2023 10/05/2022 Collection Time 09:09 AM 09:01 AM 07:40 AM Order Date 12/01/2024 10/10/2023 10/05/2022 Sodium 139 (Ref Range: 135-145 mmol/L) 138 (Ref Range: 135-145 mmol/L) 140 (Ref Range: 135-145 mmol/L) Bilirubin Total 0.5 (Ref Range: 0.0-1.0 mg/dL) 0.7 (Ref Range: 0.0-1.0 mg/dL) 0.8 (Ref Range: 0.0-1.0 mg/dL) Aspartate Amino Transferase 32 (Ref Range: 5-37 U/L) 17 (Ref Range: 5-37 U/L) 20 (Ref Range: 5-37 U/L) Alanine Aminotransferase 33 (Ref Range: 0-40 U/L) 17 (Ref Range: 0-40 U/L) 28 (Ref Range: 0-40 U/L) Total Protein 7.3 (Ref Range: 6.5-8.0 g/dL) 6.5 (Ref Range: 6.5-8.0 g/dL) 6.6 (Ref Range: 6.5-8.0 g/dL) Albumin Level 4.1 (Ref Range: 3.5-5.0 g/dL) 3.8 (Ref Range: 3.5-5.0 g/dL) 4.1 (Ref Range: 3.5-5.0 g/dL) Alkaline Phosphatase 63 (Ref Range: 39-117 U/L) 57 (Ref Range: 39-117 U/L) 56 (Ref Range: 39-117 U/L) Potassium 4.5 (Ref Range: 3.3-5.1 mmol/L) 4.2 (Ref Range: 3.3-5.1 mmol/L) 4.8 (Ref Range: 3.3-5.1 mmol/L) Chloride 106 (Ref Range: 96-108 mmol/L) 107 (Ref Range: 96-108 mmol/L) 106 (Ref Range: 96-108 mmol/L) Carbon Dioxide 26 (Ref Range: 22-29 mmol/L) 27 (Ref Range: 22-29 mmol/L) 29 (Ref Range: 22-29 mmol/L) Anion Gap 12 (Ref Range: 12-20) 8?L (Ref Range: 12-20) 10?L (Ref Range: 12-20) Blood Urea Nitrogen 14 (Ref Range: 9-16 mg/dL) 14 (Ref Range: 9-16 mg/dL) 12 (Ref Range: 9-16 mg/dL) Creatinine 0.89 (Ref Range: 0.5-1.4 mg/dL) 0.87 (Ref Range: 0.5-1.4 mg/dL) 0.96 (Ref Range: 0.5-1.4 mg/dL) Estimated Glomerular Filt Rate > 60 > 60 > 60 Glucose Fasting 86 (Ref Range: 60-99 mg/dL) 87 (Ref Range: 60-99 mg/dL) 94 (Ref Range: 60-99 mg/dL) Calcium 9.2 (Ref Range: 8.4-10.2 mg/dL) 9.2 (Ref Range: 8.4-10.2 mg/dL) 9.3 (Ref Range: 8.4-10.2 mg/dL) * Lab:Lipid Panel * Collection Date 12/01/2024 10/10/2023 10/05/2022 Collection Time 09:09 AM 09:01 AM 07:40 AM Order Date 12/01/2024 10/10/2023 10/05/2022 Triglycerides 83 (Ref Range: <150 mg/dL) 105 (Ref Range: <150 mg/dL) 102 (Ref Range: mg/dL) Cholesterol 174 (Ref Range: <200 mg/dL) 166 (Ref Range: <200 mg/dL) 169 (Ref Range: mg/dL) LDL Cholesterol Calculated 117?H (Ref Range: <100 mg/dL) 107?H (Ref Range: <100 mg/dL) 113 (Ref Range: mg/dl) HDL Cholesterol 41 (Ref Range: >40 mg/dL) 38?L (Ref Range: >40 mg/dL) 36 (Ref Range: mg/dL) * Lab:Prostate Specific Antige n * Collection Date 12/01/2024 10/10/2023 10/05/2022 Collection Time 09:09 AM 09:01 AM 07:40 AM Order Date 12/01/2024 10/10/2023 10/05/2022 Prostate Specific Antigen 1.42 (Ref Range: <0.05-4.0 ng/mL) 0.74 (Ref Range: <0.05-4.0 ng/mL) 0.75 (Ref Range: <0.05-4.0 ng/mL) * Lab:Complete Blood Count Aut o Diff * Collection Date 12/01/2024 10/10/2023 10/05/2022 Collection Time 09:09 AM 09:01 AM 07:40 AM Order Date 12/01/2024 10/10/2023 10/05/2022 White Blood Count 5.6 (Ref Range: 4.8-10.8 X10*3/uL) 5.0 (Ref Range: 4.8-10.8 X10*3/uL) 5.2 (Ref Range: 4.8-10.8 X10*3/uL) Red Blood Count 4.75 (Ref Range: 4.60-5.80 X10*6/uL) 4.69 (Ref Range: 4.60-5.80 X10*6/uL) 4.78 (Ref Range: 4.60-5.80 X10*6/uL) Hemoglobin 15.4 (Ref Range: 14.0-18.0 g/dl) 15.0 (Ref Range: 14.0-18.0 g/dl) 16.0 (Ref Range: 14.0-18.0 g/dl) Hematocrit 44.9 (Ref Range: 42.0-52.0 %) 44.4 (Ref Range: 42.0-52.0 %) 47.5 (Ref Range: 42.0-52.0 %) Mean Corpuscular Volume 94.5 (Ref Range: 80.0-98.0 fL) 94.7 (Ref Range: 80.0-98.0 fL) 99.4?H (Ref Range: 80.0-98.0 fL) Mean Corpuscular Hemoglobin 32.4 (Ref Range: 27.0-33.0 pg) 32.0 (Ref Range: 27.0-33.0 pg) 33.5?H (Ref Range: 27.0-33.0 pg) Mean Corpuscular HGB Conc 34.3 (Ref Range: 31.0-36.0 g/dl) 33.8 (Ref Range: 31.0-36.0 g/dl) 33.7 (Ref Range: 31.0-36.0 g/dl) Red Cell Distribution Width 12.4 (Ref Range: 11.0-16.0 %) 12.2 (Ref Range: 11.0-16.0 %) 11.2 (Ref Range: 11.0-16.0 %) Platelet Count 207 (Ref Range: 160-400 X10*3/uL) 205 (Ref Range: 160-400 X10*3/uL) 221 (Ref Range: 160-400 X10*3/uL) Mean Platelet Volume 9.7 (Ref Range: 9.4-12.4 fL) 9.7 (Ref Range: 9.4-12.4 fL) 10.1 (Ref Range: 9.4-12.4 fL) Neutrophils Percent Auto 49.6 (Ref Range: 45-73 %) 51.9 (Ref Range: 45-73 %) 58.8 (Ref Range: 45-73 %) Imm Gran Pct Auto 0.4 (Ref Range: 0.0-0.4 %) 0.2 (Ref Range: 0.0-0.4 %) 0.2 (Ref Range: 0.0-0.4 %) Lymphocytes Percent Auto 29.6 (Ref Range: 20-40 %) 29.7 (Ref Range: 20-40 %) 23.0 (Ref Range: 20-40 %) Monocytes Percent Auto 11.2?H (Ref Range: 2-11 %) 10.2 (Ref Range: 2-11 %) 11.5?H (Ref Range: 2-11 %) Eosinophils Percent Auto 8.7?H (Ref Range: 0-4 %) 7.2?H (Ref Range: 0-4 %) 5.7?H (Ref Range: 0-4 %) Basophils Percent Auto 0.5 (Ref Range: 0-2 %) 0.8 (Ref Range: 0-2 %) 0.8 (Ref Range: 0-2 %) NRBC Pct Auto 0.0 (Ref Range: 0.0-0.2 /100WBC) 0.0 (Ref Range: 0.0-0.2 /100WBC) 0.0 (Ref Range: 0.0-0.2 /100WBC) Neutrophils Absolute Auto 2.8 (Ref Range: 2.0-8.3 x10*3/uL) 2.6 (Ref Range: 2.0-8.3 x10*3/uL) 3.1 (Ref Range: 2.0-8.3 x10*3/uL) Imm Gran Abs Auto 0.02 (Ref Range: 0.00-0.03 X10*3/uL) 0.01 (Ref Range: 0.00-0.03 X10*3/uL) 0.01 (Ref Range: 0.00-0.03 X10*3/uL) Lymphocytes Absolute Auto 1.7 (Ref Range: 1.2-4.9 X10*3/uL) 1.5 (Ref Range: 1.2-4.9 X10*3/uL) 1.2 (Ref Range: 1.2-4.9 X10*3/uL) Monocytes Absolute Auto 0.6 (Ref Range: 0.1-1.2 X10*3/uL) 0.5 (Ref Range: 0.1-1.2 X10*3/uL) 0.6 (Ref Range: 0.1-1.2 X10*3/uL) Eosinophils Absolute Auto 0.5?H (Ref Range: 0.0-0.4 X10*3/uL) 0.4 (Ref Range: 0.0-0.4 X10*3/uL) 0.3 (Ref Range: 0.0-0.4 X10*3/uL) Basophils Absolute Auto 0.0 (Ref Range: 0.0-0.2 X10*3/uL) 0.0 (Ref Range: 0.0-0.2 X10*3/uL) 0.0 (Ref Range: 0.0-0.2 X10*3/uL) NRBC Abs Auto 0.000 (Ref Range: 0.0-0.012 X10*3/uL) 0.000 (Ref Range: 0.0-0.012 X10*3/uL) 0.000 (Ref Range: 0.0-0.012 X10*3/uL) * Examination: ???General Examination: ?GENERAL APPEARANCE:?pleasant, well nourished, well developed, in no acute distress, calm and relaxed.?HEAD:?atraumatic, normocephalic.?EYES:?eomi, perrla, anicteric, conjugate.?EARS:?normal.?NOSE:?septum intact, surgical scar well healed.?ORAL CAVITY:?normal, unremarkable.?NECK/THYROID:?no jugular venous distention, no carotid bruit, thyroid normal.?LYMPH NODES:?no enlarged lymph nodes,spleen normal.?SKIN:?no suspicious lesions, anicteric.?HEART:?no clicks, gallops, murmurs, or rubs, regular rhythm, S1, S2 normal, no s3, or vascular bruits.?LUNGS:?clear to auscultation .?BREASTS:??no masses palpable bilaterally.?ABDOMEN:?bowel sounds normal, no ascites, no organomegaly, no mass.?RECTAL EXAM:?normal tone, no external hemorrhoids, no masses palpable, no melena, no red blood, prostate normal, stool guaiac negative.?MUSCULOSKELETAL:?extremities unremarkable, no clubbing, cyanosis or edema.?PERIPHERAL PULSES:?normal.?NEUROLOGIC:?alert and oriented, cranial nerves 2-12 grossly intact, deep tendon reflexes 2+ symmetrical, motor strength normal upper and lower extremities, sensory exam intact.?PSYCH:?alert, oriented.? Assessment: * Assessment: 1.?Annual physical exam - Z0 0.00 (Primary)???2.?Acute pain of right shoulder - M25.511??? Plan: * Treatment: ? Value Reference Range ?SG 1.000 1.005 - 1.025 * ?pH 6.5 5.0 - 9.0 * ?KAELA Negative Negative - * ?NIT Negative Negative - * ?PRO 15 Negative - Trac e * ?GLU Negative Negative - * ?KET Negative Negative - * ?UBG 0.2 0.1 - 1.8 * ?EYLSIA Negative 0.2 - 1.3 * ?BLD Negative Negative - 2.?Acute pain of right shoulder?Imaging: XR SHOULDER RT 2 VIEWS? [facility]erral To:[facility]??Orthopedic Surgery ?Reason:evaluateand treatment right shoulder pain * Procedure Codes:?14945 URINE -NO MICRO * Follow Up:?2 Weeks (Reason: BP check no tests) * Images: * The named appointment provid er may or may not be the originator of this progress note, and it is not deemed complete until electronically signed by the appointment provider. Sign off status: Pending * Provider:?Karsten Solis MD Date:?11/16 Generated for Shirley arcos/Jhoana/Ivanransmitting on:?12/10/2024 01:41 PM EST History and Physical Notes * HPI (History of Present Illness) Category Sub-Category Detail Notes Depression Screening PHQ-9 Little inte rest or pleasure in doing things: Not at all Feeling down, depressed, or hopeless: No t at all Trouble falling or staying a sleep, or sleeping too much: More than half the days Feeling tired or having little energy: S everal days Poor appetite or overeating: Not at all Feeling bad about yourself o r that you are a failure, or have let yourself or your family down: Not at all Trouble concentrating on thi ngs, such as reading the newspaper or watching television: Not at all Moving or speaking so slowly that other people could have noticed; or the opposite, being so fidgety or restless that you have been moving around a lot more than usual: Not at all Thoughts that you would be b elijah off or of hurting yourself in some way: Not at all Total Score: 3 Interpretation: Minimal Depression Fall Risk Screening Fall History Have you had any falls with injury in the past year?: No Have you had two or more falls in the st year?: No Fall Risk Assessment:: COVID-19 Screening Questions Have you had any new onset fever, chills, cough, congestion, sore throat, shortness of breath, muscle aches?: No SDOH Questions SDOH Questions In the past year have you been worried about losing your housing?: No In the past year have you or any family members you live with been unable to get any of the following when it was really needed? Check all that apply:: None Examination Category Sub-Category Detail Notes General Examination GENERAL APPEARANCE: pleasant , well nourished, well developed, in no acute distress, calm and relaxed HEAD: atraumatic, normocep halic EYES: eomi, perrla, anicte johana, conjugate EARS: normal NOSE: septum intact, surgi lai scar well healed NECK/THYROID: no jugular venous di stention, no carotid bruit, thyroid normal HEART: no clicks, gallops, murmurs, or rubs, regular rhythm, S1, S2 normal, no s3, or vascular bruits LUNGS: clear to auscultatio n ABDOMEN: bowel sounds normal, no ascites, no organomegaly, no mass NEUROLOGIC: alert and oriented, cranial nerves 2-12 grossly intact, deep tendon reflexes 2+ symmetrical, motor strength normal upper and lower extremities, sensory exam intact SKIN: no suspicious lesion s, anicteric PERIPHERAL PULSES: normal BREASTS: no masses palpable b ilaterally MUSCULOSKELETAL: extremities unremark able, no clubbing, cyanosis or edema LYMPH NODES: no enlarged lymph no leyla,spleen normal RECTAL EXAM: normal tone, no exte rnal hemorrhoids, no masses palpable, no melena, no red blood, prostate normal, stool guaiac negative PSYCH: alert, oriented ORAL CAVITY: normal, unremarkable Consultation Request Notes Referral Date Referring Provider Referred Provider Not aura 12/10/2024 Karsten Solis [facility] evaluate and treatment right shoulder pain
--- OUTSIDE RECORDS SUMMARY | 2024-12-10 13:42 | XMS_ITS | Patient Health Record ---
Author Organization [facility] Address [address] [place] [address] Care Team Providers Care Stem Mounter Name Role Phone Karsten Solis MD Primary Care Provider UnavailKarsten Cantu Unavailable [phone] ALLERGIES Allergen (clinical drug ingredient) Drug/Non Drug Allergy documented on EMR Reaction Allergy Type Onset Date Status Tree pollen TREE POLLEN (uncoded) Unknown Allergy Active REASON FOR REFERRAL No Information SOCIAL HISTORY Sex Assigned At : Social History Observation Description Sex Assigned At Unknown Alcohol Screen Question Answer Notes Did you have a drink containing alcohol in the p ast year? No Points 0 Interpretation Negative PROBLEMS Problem Type ICD Code Onset Dates Problem Status W/U Status Risk SNOMED Code Notes Problem Encounter for screening for malignant neoplasm of colon (Z12.11) Active confirmed 155801982 Problem History of adenomatous polyp of colon (Z86.010) Active confirmed 115120666 Problem Encounter for screening for malignant neoplasm of rectum (Z12.12) Active confirmed Screening fo r malignant neoplasm of rectum (071990739) Problem Preprocedural examination (Z01.818) Active confirmed 587252901 Problem Family history of colon cancer (Z80.0) Active confirmed 937898442 Problem Diverticulosis of colon (K57.30) Active confirmed Diverticulosi s of colon (288469053) PLAN OF TREATMENT Pending Test Test Name Order Date Pathology 05/07/2023 Future Test Test Name Order Date COLONOSCOPY 01/03/2017 COLONOSCOPY 02/23/2023 Insurance Providers Payer Name Payer Address Payer Phone Subscriber Number Group Number Insured Name Patient Relationship to Insured Coverage Start Date Coverage End Date [facility] [employer] Benefits [address] [address] [place], [place] [phone] [id number] ELIAS NETTLES Self - patient is the insured MEDICAL (GENERAL) HISTORY Medical History History ICD Code Melanoma-neck--as below Denies ID,DM,CVA,Lung disease,renal dise ase Colonoscopies in 2010, 2003, and in the that have all been negative for polyps--- the 2010 colonoscopy was done by Dr. Grant and the 2003 colonoscopy was done by Dr. Zapien--- the previous colonoscopy was done in [place]. Screening colonoscopy in [place] with removal of several small tubular adenomas Surgical History Surgery Date(Month/Year) Melanoma--radical neck surgery in [place] 199 2 Bilateral carpal tunnel--Dr. Wiseman Vasectomy
--- OUTSIDE RECORDS SUMMARY | 2024-12-10 13:43 | XMS_ITS ---
Author Organization Karsten Solis III, MD Address [address] [place] [address] Care Team Providers Care Student Counsellor Name Role Phone Karsten Solis Primary Care Provider [phone] REASON FOR VISIT Update Demographics - Personal Info Social History Sex Assigned At : Social History Observation Description Sex Assigned At Male Encounters Encounter Location Date Provider Diagnosis Karsten Solis III, MD [address] [place] [address] [place] [address] 11/05/2024 Karsten Solis Plan Of Treatment Next Appt Details Provider Name:Karsten Solis, 12/23/2024 11:00:00 AM, [address] [facility] [place], [address], Provider Name:Karsten Solis, 2025 10:00:00 AM, [address] [facility] [place], [address], Progress Notes * Eris VIEIRA DDOB:[birth year] (68 yo M)Acc No.[id number]:11/05/2024 Patient:?Eirs VIEIRA D :1955???Age:68 Y???Sex:Male Address:[address] [place] [address], [place] [address] * true * Date:? Generated for Shirley arcos/Jhoana/eTransmitting on:?12/10/2024 01:42 PM EST
== END 2024-12-10 10:56 | disposition home or self-care (01) ==
LOC: HO.XRAY 10:55
PROVIDERS: PCP Internal Medicine Medical Oncology; Visit Provider Internal Medicine Medical Oncology
DX: M25.511 Pain in right shoulder (principal)
CPT/HCPCS: 73030

== ENCOUNTER → 2024-12-10 11:00 | Outpatient (BNV) | payer MEDICARE, SELFPAY | PROVIDERS: PCP Internal Medicine Medical Oncology; Visit Provider Radiology Diagnostic Radiology | DX: M19.011 Primary osteoarthritis, right shoulder (principal) | CPT/HCPCS: 73030 ==